=== PATIENT | female | born 1980 | race Caucasian/White ===

== ENCOUNTER 2018-02-17 14:17 | Emergency (ER) | payer BC ==
[2018-02-17] MEDS ORDERED: FENTANYL CITRATE INJ/PF 100 MCG/2 ML AMPUL IV ONE ×2 (14:40→15:32)
--- NOTE | 2018-02-17 14:45 | ER Document Report ---
ED General - General Chief Complaint: Wrist Injury Stated Complaint: FALL/WRIST PAIN Time Seen by Provider: 02/17/18 14:31 Mode of Arrival: Ambulatory Information source: Patient, [facility] Records Notes: 38-year-old female with ADHD presents via private vehicle after a trip and fall with complaint of left wrist pain. Patient states that she got up from her chair and her left foot was asleep causing her to fall forward. She states she fell forward twice on a carpeted floor. She denies head injury, loss of consciousness. She denies preceding chest pain, shortness of breath or dizziness. She has been otherwise well. Patient is right-hand dominant TRAVEL OUTSIDE OF THE [place] IN LAST 30 DAYS: No - HPI Onset: Just prior to arrival Onset/Duration: Sudden Quality of pain: Throbbing Severity: Moderate Associated symptoms: None Exacerbated by: Movement Relieved by: Denies Similar symptoms previously: No Recently seen / treated by doctor: No - Related Data Allergies/Adverse Reactions: No Known Allergies Allergy (Verified 02/17/18 14:17) Past Medical History - General Information source: Patient, [facility] Records - Social History Smoking Status: Never Smoker Frequency of alcohol use: None Drug Abuse: None Lives with: Family Family History: Reviewed & Not Pertinent Patient has suicidal ideation: No Patient has homicidal ideation: No Psychiatric Medical History: Reports: Hx Attention Deficit Hyperactivity Disorder Review of Systems - Review of Systems Notes: REVIEW OF SYSTEMS: CONSTITUTIONAL : Denies fever, chills, or sweats. Denies recent illness. Denies weight loss, recent hospitalizations. EENT: Denies visual changes, eye pain. Denies sore throat, oral lesions, difficulty swallowing. CARDIOVASCULAR: Denies chest pain. Denies palpitations. Denies lower extremity edema. RESPIRATORY: Denies cough. Denies shortness of breath, wheezing. GASTROINTESTINAL: Denies abdominal pain or distention. Denies nausea, vomiting , or diarrhea. Denies blood in vomitus, stools, or per rectum. Denies black, tarry stools. Denies constipation. GENITOURINARY: Denies difficulty urinating, painful urination, frequency, blood in urine, or vaginal discharge. MUSCULOSKELETAL: Denies back or neck pain or stiffness. SKIN: Denies rash, lesions or sores. HEMATOLOGIC : Denies easy bruising or bleeding. LYMPHATIC: Denies swollen glands. NEUROLOGICAL: Denies confusion or altered mental status. Denies loss of consciousness. Denies dizziness or lightheadedness. Denies headache. Denies weakness or paralysis. Denies problems difficulty with ambulation, slurred speech. Denies sensory loss, numbness, or tingling. Denies seizures. PSYCHIATRIC: Denies anxiety or stress. Denies depression, suicidal ideation, or homicidal ideation. Denies visual or auditory hallucinations. PHYSICAL EXAMINATION: GENERAL: Well-appearing, well-nourished and in no acute distress. HEAD: Atraumatic, normocephalic. EYES: Pupils equal round and reactive to light, extraocular movements intact, conjunctiva are normal. ENT: Nares patent, oropharynx clear without exudates. Moist mucous membranes. NECK: Normal range of motion, supple without lymphadenopathy LUNGS: Breath sounds clear to auscultation bilaterally and equal. No wheezes rales or rhonchi. HEART: Regular rate and rhythm without murmurs ABDOMEN: Soft, nontender, nondistended abdomen. No guarding, no rebound. No masses appreciated. Female : deferred Musculoskeletal: Obvious deformity of the left wrist. Faint radial pulse, delayed cap refill. No pitting or edema. No cyanosis. NEUROLOGICAL: Cranial nerves grossly intact. Normal speech, normal gait. Normal sensory, motor exams PSYCH: Normal mood, normal affect. SKIN: Warm, Dry, normal turgor, no rashes or lesions noted. Physical Exam - Vital signs Vitals: Temp Pulse Resp BP Pulse Ox 97.5 F 68 20 119/77 100 02/17/18 14:22 02/17/18 14:22 02/17/18 14:22 02/17/18 14:22 02/17/18 14:22 Course - Re-evaluation Re-evalutation: Wrist X-Ray 02/17/18 14:25 IMPRESSION: Comminuted fracture distal left radius with volar angulation. 02/17/18 14:44 38-year-old female presents after a trip and fall at home. Obvious deformity to the left wrist. Faint radial pulse, cap refill is delayed. IV will be placed, reduction attempted. 02/17/18 15:[address] Parra regarding the patient's fracture. He states it is unstable and likely requiring surgery. He states that if we fail to reduce it he would not continue to attempt but states that the patient should come to his office at 8 AM Sunday. 02/17/18 16:00 Reduction attempted using fentanyl and propofol. Patient was placed in finger traps and reduction performed and splint placed. Radial pulse intact, cap refill less than 3 seconds. Postreduction films pending. 02/18/18 02:14 Postreduction films show improvement of alignment. Patient was discharged home with instructions to elevate, ice and follow-up with Dr. Parra on Sunday jyoti at 8:00. Patient was evaluated and treated as appropriate for the patient's presenting symptoms and complaint, with consideration of any critical or life threatening conditions that may be associated with their obtained history and exam as noted above. All results were discussed with patient. Patient provided the opportunity to ask questions, and express concerns. Patient was educated on treatments based on their presumed diagnosis as noted above. At this time we will discharge the patient with return precautions and follow-up recommendations. Verbal discharge instructions given a the bedside. Medication warnings reviewed. Patient is in agreement with this plan and has verbalized understanding of return precautions. After careful consideration I feel that that patient can be safely discharged from the emergency department, they were advised to followup with a primary care physician in 2-3 days. Dictation on this chart was performed using voice recognition software and may result in unintended grammatical, spelling, syntax or errors. - Vital Signs Vital signs: Temp Pulse Resp BP Pulse Ox 98.5 F 54 L 19 116/77 100 02/17/18 17:04 02/17/18 16:00 02/17/18 16:46 02/17/18 16:46 02/17/18 16:46 - Diagnostic Test Radiology reviewed: Image reviewed, Reports reviewed Procedures - Conscious Sedation Conscious sedation Time started: 15:45 Time completed: 16:04 Consent obtained: Yes Last meal: 4 hours prior to arrival Pt with a mild systemic disease.: P2. - ASA Classification. Airway Evaluation: Normal anatomy Mallampati Classification: Class 2 Used during procedure: Suction available, IV access obtained, Pulse ox on pt., conveyor monitor on pt. Medications administered: Fentanyl, Diprivan Reversal agents: None I personally performed/intraservice time: Sedation, Procedure, 31-45 min Complications: No - Joint Reduction/Fracture Care Left Wrist Time completed: 16:06 Consent obtained: Yes Conscious sedation: Yes Pre-procedure NV exam: Yes - Within normal limits Fracture: Closed Post-procedure NV exam: Yes - Refill less than 3 seconds, radial pulse intact. Post-reduction x-ray: Joint reduced Reduction attempts: 1 Complications: No Discharge - Discharge Clinical Impression: Distal radius fracture, left Qualifiers: Encounter type: initial encounter Fracture type: closed Fracture morphology: unspecified fracture morphology Qualified Code(s): S52.502A - Unspecified fracture of the lower end of left radius, initial encounter for closed fracture Fall Qualifiers: Encounter type: initial encounter Qualified Code(s): W19.XXXA - Unspecified fall, initial encounter Condition: Good Disposition: HOME, SELF-CARE Instructions: Fractured Radius ([facility]) Additional Instructions: Please ice the area when possible elevate the arm. Narcotic medications can make you constipated. He should take a stool softener while taking these medications. Do not take Tylenol with the Percocet as it already has Tylenol in it. Please follow-up with Dr. Parra on Sunday at 8 AM in his office that is listed on your discharge paperwork. Please return with increasing pain, swelling, loss of sensation. Follow up with your [id number] hours for further care or return to the ED IMMEDIATELY if symptoms worsen or you have any concerns. If you cannot afford to follow up with your primary care physician a list of low cost clinics have been provided at the end of your discharge papers as well. Most prescribed medications have multiple side effects. The safest thing to do is when filling your prescription speak to your pharmacist regarding possible interactions with your normal home medications and over the counter medications such as Ibuprofen, Tylenol, Benadryl. If you experience any symptoms that cause you discomfort or concern you should discontinue the medication immediately and return to the emergency room or call your primary care physician. Prescriptions: Hydrocodone/Acetaminophen [[place] 5-325 mg Tablet] 1 tab PO Q6H #12 tablet Ibuprofen [Motrin 600 Mg Tablet] 600 mg PO TID #15 tablet Referrals: MERT PARRA MD [ACTIVE STAFF] - 02/19/18 8:00 am
--- NOTE | 2018-02-17 14:58 | RADIOLOGY REPORT (SQ) ---
EXAM DESCRIPTION: WRIST LEFT 3 VIEWS COMPLETED DATE/TIME: 02/17/2018 2:47 pm REASON FOR STUDY: deformity COMPARISON: None. NUMBER OF VIEWS: Three views. TECHNIQUE: AP, lateral, and oblique radiographic images acquired of the left wrist. LIMITATIONS: None. FINDINGS: There is evidence of a comminuted impacted fracture distal left radius with volar angulati on. Otherwise ,no acute fracture or bony abnormality seen. IMPRESSION: Comminuted fracture distal left radius with volar angulation. TECHNICAL DOCUMENTATION: JOB ID: [id number] [employer]- All Rights Reserved Reading location - IP/workstation name: [email or web address]
[2018-02-17] MEDS ORDERED: PROPOFOL INJ 200 MG/20 ML VIAL IV ONE (15:32)
--- NOTE | 2018-02-17 16:22 | RADIOLOGY REPORT (SQ) ---
EXAM DESCRIPTION: WRIST LEFT 2 VIEWS COMPLETED DATE/TIME: 02/17/2018 4:10 pm REASON FOR STUDY: post reduction COMPARISON: Pre reduction films. NUMBER OF VIEWS: Two views, AP and lateral. LIMITATIONS: Obscuring external cast material. FINDINGS: Fracture has been reduced, less dorsal angulation. OTHER: No other significant finding. IMPRESSION: Improved alignment of the radial fracture. TECHNICAL DOCUMENTATION: JOB ID: [id number] Reading location - IP/workstation name: [email or web address]
[2018-02-17 16:52] VITALS: BP 116/77
== END 2018-02-17 17:00 | disposition home or self-care (01) ==
LOC: ER 14:17
DX: S52.592A Other fractures of lower end of left radius, initial encounter for closed fracture (principal); W01.0XXA Fall on same level from slipping, tripping and stumbling without subsequent striking against object, initial encounter; Y92.009 Unspecified place in unspecified non-institutional (private) residence as the place of occurrence of the external cause
CPT/HCPCS: 99284; 99152; 73100; 73110; 25605; L3650; J3010; J2704

== ENCOUNTER 2018-02-20 06:13 | Day surgery (SDC) | payer BC ==
[~2018-02-20 06:13] MED LIST: CEFAZOLIN SODIUM 2 GM in DEXTROSE 5%-WATER 100 ML IV PRN
[2018-02-20] MEDS ORDERED: OXYCODONE-ACETAMINOPHEN 5-325 MG TABLET PO PRN ×2 (07:45)
[2018-02-20] MEDS ORDERED: MEPERIDINE HCL/PF INJ 25 MG/1 ML DISP.SYRIN IV PRN (07:45)
[2018-02-20] MEDS ORDERED: PROMETHAZINE HCL INJ 25 MG/1 ML VIAL IV PRN ×2 (07:45)
[2018-02-20] MEDS ORDERED: DIPHENHYDRAMINE HCL 50 MG/ML VIAL IV PRN (07:45)
[2018-02-20] MEDS ORDERED: FENTANYL CITRATE INJ/PF 100 MCG/2 ML AMPUL IV PRN ×3 (07:45)
[2018-02-20] MEDS ORDERED: MORPHINE SULFATE 10 MG/ML INJ IV PRN (07:45)
[2018-02-20] MEDS ORDERED: FENTANYL CITRATE INJ/PF 250 MCG/5 ML AMPULE ONE (08:10)
[2018-02-20] MEDS ORDERED: DEXAMETHASONE SOD PHOSPHATE INJ 4 MG/1 ML VIAL ONE (08:10)
[2018-02-20] MEDS ORDERED: MIDAZOLAM 2 MG/2 ML INJ ONE (08:10)
[2018-02-20] MEDS ORDERED: ONDANSETRON HCL INJ/PF 4 MG/2 ML SDV ONE (08:10)
[2018-02-20] MEDS ORDERED: LIDOCAINE 2% INJ-PF (20 MG/ML) 10 ML AMPUL ONE (08:10)
[2018-02-20] MEDS ORDERED: EPHEDRINE SULFATE INJ 50 MG/1 ML AMPULE ONE (08:10)
[2018-02-20] MEDS ORDERED: ACETAMINOPHEN 1,000 MG/100 ML RTUPB IV ONE (08:11)
[2018-02-20] MEDS ORDERED: PROPOFOL INJ 200 MG/20 ML VIAL IV ONE (08:11)
[2018-02-20] MEDS ORDERED: BUPIVACAINE HCL 0.5%-EPI 1:200000 INJ/PF 30 ML VIAL ONE (08:15)
--- NOTE | 2018-02-20 09:16 | Discharge Summary ---
Discharge Summary (SDC) - Discharge Final Diagnosis: Left distal radius fracture Date of Surgery: 02/20/18 Discharge Date: 02/20/18 Condition: Good Treatment or Instructions: Elevate left upper extremity to decrease swelling Prescriptions: Oxycodone HCl/Acetaminophen [Percocet 5-325 mg Tablet] 1 tab PO Q6 PRN #40 tablet PRN Reason: Discharge Diet: As Tolerated, Regular Respiratory Treatments at Home: Deep Breathing/Coughing Discharge Activity: Balance Activity w/Rest, No tub bath Home Care Assistance: None Needed Report the Following to Your Physician Immediately: Shortness of Breath, Fever over 101 Degrees, Drainage-Foul Smelling
--- NOTE | 2018-02-20 09:21 | Operative Report ---
Operative Report DATE OF SURGERY: 02/20/18 PREOPERATIVE DIAGNOSIS: Left distal radius fracture OPERATION: Open reduction internal fixation left distal radius fracture SURGEON: MERT PARRA ANESTHESIA: GA ESTIMATED BLOOD LOSS: 25 PROCEDURE: The patient supine and operative table left upper extremities prepped and draped in sterile fashion. Limb is elevated for exsanguination tourniquet inflated 250 torr. A curvilinear incision made over the volar radial aspect of the left upper extremity to enable a surgical approach between the FCR and the radial neurovascular bundle. Blunt dissection was carried incision down the pronator quadratus. The posterior pronator quadratus was retracted ulnarward. The underlying fracture was easily identified. Its reduced under direct visualization and a single pin is placed to the radial styloid to hold the reduction. Next a short Pimento distal volar radial plate is applied to the volar surface of the radius and secured with a temporary pin. Its position was checked fluoroscopically and felt to be adequate. Fracture reduction is likewise adequate. The fracture reduction is then secured using 3 screws proximally and 4 screws distally. Fracture reduction and the hardware placement checked fluoroscopically and felt to be adequate. The tourniquet is deflated. Hemostasis obtained with bipolar cautery. The wound was then closed in layers using interrupted Vicryl followed by Monocryl and Steri-Strips. A sterile compressive dressing was applied and the patient's return to the PACU in satisfactory condition.
[2018-02-20] MEDS ORDERED: FENTANYL CITRATE INJ/PF 100 MCG/2 ML AMPUL ONE (09:54)
[2018-02-20] MEDS ORDERED: OXYCODONE-ACETAMINOPHEN 5-325 MG TABLET ONE (10:45)
[2018-02-20 11:48] VITALS: BP 129/91
--- NOTE | 2018-02-20 11:52 | RADIOLOGY REPORT (SQ) ---
EXAM DESCRIPTION: WRIST LEFT 2 VIEWS; NO CHG FLUORO COMPLETED DATE/TIME: 02/20/2018 11:39 am REASON FOR STUDY: ORIF LT WRIST S52.502A UNSP FRACTURE OF THE LOWER END OF LEFT RADIUS, INIT COMPARISON: None. FLUOROSCOPY TIME: 25 seconds 2 images saved to PACS. TECHNIQUE: Intra-operative images acquired during surgical procedure to evaluate progress. NUMBER OF IMAGES: 2 LIMITATIONS: None. FINDINGS: Limited fluoroscopic images demonstrate plate and screw fixation of the distal radius. Pl ease see operative report for detailed description of procedure. IMPRESSION: IMAGE(S) OBTAINED DURING PROCEDURE. COMMENT: Quality ID [id number]: Final reports for procedures using fluoroscopy that document radiation exp osure indices, or exposure time and number of fluorographic images (if radiation exposure indices are not available) Please consult full operative report of the attending physician for description of the procedure. TECHNICAL DOCUMENTATION: JOB ID: [id number] [facility]- All Rights Reserved Reading location - IP/workstation name: [email or web address]
--- NOTE | 2018-02-20 11:52 | RADIOLOGY REPORT (SQ) ---
EXAM DESCRIPTION: WRIST LEFT 2 VIEWS; NO CHG FLUORO COMPLETED DATE/TIME: 02/20/2018 11:39 am REASON FOR STUDY: ORIF LT WRIST S52.502A UNSP FRACTURE OF THE LOWER END OF LEFT RADIUS, INIT COMPARISON: None. FLUOROSCOPY TIME: 25 seconds 2 images saved to PACS. TECHNIQUE: Intra-operative images acquired during surgical procedure to evaluate progress. NUMBER OF IMAGES: 2 LIMITATIONS: None. FINDINGS: Limited fluoroscopic images demonstrate plate and screw fixation of the distal radius. Pl ease see operative report for detailed description of procedure. IMPRESSION: IMAGE(S) OBTAINED DURING PROCEDURE. COMMENT: Quality ID [id number]: Final reports for procedures using fluoroscopy that document radiation exp osure indices, or exposure time and number of fluorographic images (if radiation exposure indices are not available) Please consult full operative report of the attending physician for description of the procedure. TECHNICAL DOCUMENTATION: JOB ID: [id number] [employer]- All Rights Reserved Reading location - IP/workstation name: [email or web address]
== END 2018-02-20 11:35 | disposition home or self-care (01) ==
LOC: OROUT 06:13
PROVIDERS: ATTEND Orthopaedic Surgery
DX: S52.502A Unspecified fracture of the lower end of left radius, initial encounter for closed fracture (principal); W19.XXXA Unspecified fall, initial encounter; F90.9 Attention-deficit hyperactivity disorder, unspecified type; E66.9 Obesity, unspecified; Z79.899 Other long term (current) drug therapy; Z68.33 Body mass index [BMI] 33.0-33.9, adult
CPT/HCPCS: 81025; 73100; 25607; C1713 ×6; J2250; J3490 ×2; J0690; J1100; J3010 ×2; J2405; J2704; J0131; 01830